=== PATIENT | female | born 1980 | race Caucasian/White ===

== ENCOUNTER 2016-03-05 14:38 | Emergency (ER) | payer OTHER ==
[~2016-03-05] VITALS: Ht 167.6 cm; Wt 163.0 kg
[2016-03-05 14:40] VITALS: BP 153/93
--- OUTSIDE RECORDS SUMMARY | 2016-03-05 14:42 | XMS REPORT | Summary of Care ---
Author Author Renny Maxwell M.D. 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 Unavailable Unavailable Adele Maxwell M.D. Unavailable Unavailable Renny Maxwell PP Unavailable Unavailable Unavailable Functional Status Functional Status Health Issues Name Dates Details Functional status health issues are not documented Status: Cognitive Status Health Issues Name Dates Details Cognitive status health issues are not documented Status: Problems Name Dates Details Headache (784.0, R51) Status: Active Anxiety (300.00, F41.9) Status: Active Reflux esophagitis (530.11, K21.0) Status: Active Hypoglycemia (251.2, E16.2) Status: Active Allergic rhinitis (477.9, J30.9) Status: Active Migraine headache (346.90, G43.909) Status: Active Asthma (493.90, J45.909) Status: Active Hypertension (401.9, I10) Status: Active Dyshidrosis (705.81, L30.1) Status: Active Acne vulgaris (706.1, L70.0) Status: Active Cervicalgia (723.1, M54.2) Status: Active Depression (311, F32.9) Status: Active Primary female infertility (628.9, N97.9) Status: Active Palpitations (785.1, R00.2) Status: Active Medications Name Dates Details Pantoprazole Sodium 40 MG Oral Tablet Delayed Release TAKE ONE TABLET BY MOUTH EVERY MORNING. Quantity: 90 Refills: 3 Renny Maxwell M.D. Started 16-Jun-2008 ActiveMetoprolol Succinate ER 50 MG Oral Tablet Extended Release 24 Hour Take one tablet by mouth daily Quantity: 90 Refills: 1 Renny Maxwell M.D. Started 22-Feb-2009 ActiveTopiramate 25 MG Oral Tablet Take one tab in the morning and 2 tabs at night. Quantity: 90 Refills: 5 Kenneth Schafer M.D. Started 30-Oct-2011 Active Allergies and Adverse Reactions Name Dates Details ALEX Inhibitors Status: Active Minocycline HCl TABS Reaction: Hives (Severe) Status: Active Sulfa Drugs Status: Active Past Medical History Name Dates Details History of abnormal weight loss (V13.89, Z87.898) Status: Resolved History of acne (V13.3, Z87.2) Status: Resolved History of Acute sinusitis (461.9, J01.90) Status: Resolved History of Acute sinusitis (461.9, J01.90) Status: Resolved History of Acute tonsillitis (463, J03.90) Status: Resolved History of allergy (V15.09, Z88.9) Status: Resolved History of Asthma (493.90, J45.909) Status: Resolved History of depression (V11.8, Z86.59) Status: Resolved History of drug allergy (V14.9, Z88.9) Status: Resolved History of Encounter for pre-employment examination (V70.5, Z02.1) Status: Resolved History of Foot pain (729.5, M79.673) Status: Resolved History of head injury (V15.59, Z87.828) Status: Resolved History of headache (V13.89, Z87.898) Status: Resolved History of hidradenitis suppurativa (V13.3, Z87.2) Status: Resolved History of Metatarsalgia (726.70, M77.40) Status: Resolved History of nausea and vomiting (V12.79, Z87.898) Status: Resolved History of Palpitations (785.1, R00.2) Status: Resolved History of Reflux esophagitis (530.11, K21.0) Status: Resolved History of Routine history and physical examination of adult (V70.0, Z00.00) Status: Resolved History of Screening examination for venereal disease (V74.5, Z11.3) Status: Resolved History of Sleep disturbances (780.50, G47.9) Status: Resolved History of Sore throat (462, J02.9) Status: Resolved History of syncope (V15.89, Z87.898) Status: Resolved History of Visual impairment (369.9, H54.7) Status: Resolved Procedures Procedure Dates Details History of Diagnostic Esophagogastroduodenoscopy Completed:18-Jun-2008 History of Tonsillectomy History of Breast Surgery Reduction Procedure History of Breast Surgery Reduction Procedure History of Tonsillectomy With Adenoidectomy Procedures not documented Immunization Name Dates Details Immunizations not documented Family History Unknown Family Member Name Dates Details Family history of Ovarian Cancer (V16.41) Comments: Family History Status: Active Family history of Cancer Comments: Family History Status: Active Family history of Leukemia (V16.6) Comments: Family History Status: Active Family history of Asthma (V17.5) Comments: Family History Status: Active Family history of Allergies To Multiple Foods Comments: Family History Status: Active Grandfather Name Dates Details Family history of Stroke Syndrome (V17.1) Status: Active Mother Name Dates Details Family history of Hay Fever Status: Active Family history of Depression Status: Active Family history of Hypoglycemia Status: Active Father Name Dates Details Family history of Diabetes Mellitus (V18.0) Status: Active Family history of Hypertension (V17.49) Status: Active Brother Name Dates Details Family history of Alcohol Abuse Status: Active Grandfather Name Dates Details Family history of Diabetes Mellitus (V18.0) Status: Active Social History Name Dates Details Smoking StatusNever smoker Vital Signs Date Test Result Details 19-Jul-2015 13:38 BP Systolic 118 mm[Hg] Status: BP Diastolic 68 mm[Hg] Status: Heart Rate 86 /min Status: Weight 363 lb Status: O2 SAT 99 % Status: Body Mass Index Calculated 58.59 kg/m2 Status: Body Surface Area Calculated 2.58 m2 Status: Results Date Description Value Details Results not documented Plan of Care Planned Observations Name Dates Details Planned Goals not documented Goal Planned Encounters Appointment; Provider: Nathanael Williamson On 09-May-2012 09:00 Appointment; Provider: Sonido Lemons On 20-Feb-2010 07:30 Appointment; Provider: Jose Miguel Gee On 09:15 Appointment; Provider: Wilfredo Garber On 18-Jun-2008 09:00 Instructions Instructions not documented Encounters Appointment; Renny Maxwell Encounter Diagnosis: Problem not documented On 19-Jul-2015 13:15
[2016-03-05] MEDS ORDERED: TOPI50TA37 PO (15:22)
[2016-03-05] MEDS ORDERED: PANT40TA3 PO (15:22)
[2016-03-05] MEDS ORDERED: METO50TA7 PO (15:22)
[2016-03-05] MEDS ORDERED: METF500T4 PO (15:22)
[2016-03-05] MEDS ORDERED: DOXY100C2 PO (15:27)
[2016-03-05] MEDS ORDERED: MULT-955 PO (15:27)
[2016-03-05] MEDS ORDERED: CALC1CAP21 PO (15:27)
[2016-03-05] MEDS ORDERED: ESCI20TA PO (15:27)
[2016-03-05] MEDS ORDERED: CHOL100055 PO (15:27)
[2016-03-05] MEDS ORDERED: NORE1TAB61 PO (15:27)
[2016-03-05] MEDS ORDERED: HYDROmorphone 1 MG/ML (DILAUDID) SYRINGE IV ONE ×2 (16:10→17:25)
[2016-03-05] MEDS ORDERED: diphenhydrAMINE 50 MG/ML INJ (BENADRYL) IV ONE (16:10)
[2016-03-05] MEDS ORDERED: METOCLOPRAMIDE 10 MG/2 ML (REGLAN) VIAL IV ONE (16:10)
[2016-03-05 16:24] LABS: BASOPHILS % (AUTO) 0 % (0-2); EOSINOPHILS # (AUTO) 0.1 10^3uL; EOSINOPHILS % (AUTO) 1 % (0-4); LYMPHOCYTES # (AUTO) 1.3 X10^3; MEAN CORPUSCULAR HEMOGLOBIN 26.5 PG (26.0-34.0); MEAN CORPUSCULAR HGB CONC 32.7 g/dL (31.0-37.0); MEAN CORPUSCULAR VOLUME 81 FL (80-100); MEAN PLATELET VOLUME 10.2 FL (6.0-9.5); MONOCYTES # (AUTO) 0.4 X10^3; MONOCYTES % (AUTO) 4 % (3-11); NEUTROPHILS # (AUTO) 6.8 X10^3; NEUTROPHILS % (AUTO) 79 % (51-67); PLATELET COUNT 309 10^3uL (150-450)
[2016-03-05 16:37] LABS: ALBUMIN 4.2 g/dL (3.4-5.0); CALCULATED IONIZED CALCIUM 3.9 mg/dL (3.8-4.6); TOTAL PROTEIN 7.5 g/dL (6.4-8.5)
--- NOTE | 2016-03-05 16:52 | Diagnostic Imaging Report ---
PROCEDURE: CT head without contrast. TECHNIQUE: Multiple contiguous axial images were obtained through the brain without the use of intravenous contrast. INDICATION: Severe headaches for 3 days. COMPARISON: None. DISCUSSION: A very subtle ill-defined focus of low-attenuation along the superior aspect of the left basal ganglia measures 1.4 cm and is indeterminate. Recommend brain MRI with contrast for further evaluation. Otherwise, no acute intracranial hemorrhage, midline shift, or hydrocephalus is identified. The ventricles and sulci are normal in size and configuration for age. Mild scattered paranasal sinus mucosal thickening is likely chronic. No air/fluid level is identified. The visualized orbits, mastoid air cells, and calvarium are unremarkable. IMPRESSION: 1. Ill-defined subtle focus of low-attenuation along the superior aspect of the left basal ganglia is indeterminate. Recommend brain MRI with contrast for further evaluation. 2. Pansinus mucosal thickening. Dictated by: Dictated on workstation # [id number]
[2016-03-05] MEDS ORDERED: KETOROLAC 30 MG/ML (TORADOL) 1 ML VIAL IV ONE (17:25)
--- NOTE | 2016-03-05 17:35 | NUR ---
PT IN ROOM ON CELL PHONE, RATES PAIN A 6 OUT OF 10
--- NOTE | 2016-03-05 18:22 | NUR ---
[facility] LOVE
== END 2016-03-05 18:40 | disposition home or self-care (01) ==
LOC: ED 14:40
DX: G43.009 Migraine without aura, not intractable, without status migrainosus (principal)
CPT/HCPCS: 36415; 70450; 80053; 85025; 86140; 96361; 96374; 96375; 96376; 99283; J1170; J1200; J1885; J2765; J7030

== ENCOUNTER → 2016-03-05 | Outpatient (CLI) | payer OTHER ==
[~2016-03-05] MED LIST: CALC1CAP21 PO; CHOL100055 PO; DOXY100C2 PO; ESCI20TA PO; METF500T4 PO; METO50TA7 PO; MULT-955 PO; NORE1TAB61 PO; PANT40TA3 PO; TOPI50TA37 PO
--- NOTE | 2016-03-05 15:18 | Urgent Care T Sheet Gen (E) ---
Intake History of Present Illness Allergies: Coded Allergies: ALEX Inhibitors (Verified Allergy, Severe, Anaphylaxis, 03/05/16) Sulfa (Sulfonamide Antibiotics) (Verified Allergy, Severe, Anaphylaxis, 03/05/16) minocycline (Verified Allergy, Mild, Hives, 03/05/16) Respiratory Constitutional Symptoms: No syptoms reported All Other Systems Reviewed Remaining Systems: All other systems reviewed with negative findings Physical Exam Physical Exam General Appearance: Mild distress Departure Urgent Care Impression Impression: Primary Impression: Headache Qualified Code: R51 - Headache Departure Departed Disposition: To [facility] ED Condition: Stable Referrals: Renny Maxwell (PCP) Additional Instructions: Patient's BP was 140/100. History of migraine headaches for which she takes Topamax and Metoprolol. History of infarct approx 3 years ago Patient states this is "the worst headache of my life". Blurred vision, light sensitivity I sent her to the ER for workup and treatment. Report called to Lisa Patient understands DC instructions. All questions were answered. is driving her to ER End of report . FAMILIA ORTEGA Mar 05, 2016 15:18
== END ==
LOC: MHUC 14:16
PROVIDERS: ATTEND Physician Assistant
DX: R51 Headache (principal)